=== PATIENT | female | born 1955 | race Caucasian/White ===

== ENCOUNTER 2021-03-30 14:03 | Emergency (ER) | payer MEDICARE, OTHER, SELFPAY ==
[2021-03-30 14:26] VITALS: BP 120/83; PULSE 98; RESP 20; TEMP 36.7; O2SAT 98
--- NOTE | 2021-03-30 14:46 | XRR_ITS ---
PROCEDURE INFORMATION: Exam: XR Chest Exam date and time: 03/30/2021 2:46 PM Age: 66 years old Clinical indication: Dyspnea and shortness of breath; Patient HX: Shaky, dyspnea; Additional info: SOB TECHNIQUE: Imaging protocol: XR of the chest. Views: 1 view. COMPARISON: No relevant prior studies available. FINDINGS: Lungs: Unremarkable. No consolidation. Pleural spaces: Unremarkable. No pleural effusion. No pneumothorax. Heart/Mediastinum: Unremarkable. No cardiomegaly. Bones/joints: No acute findings. XR/XR chest 1V portable [id number] IMPRESSION: No acute findings.
[2021-03-30 17:57] VITALS: BP 124/80; PULSE 73; RESP 21; O2SAT 100
[2021-03-30 18:00] VITALS: BP 129/81; PULSE 62; RESP 19; O2SAT 99
[2021-03-30 18:05] LABS: Add Urine Microscopic? NO; Charge for UA Resulting for Rev
[2021-03-30 18:07] LABS: Basophils # 0.1 10^3/uL (0.0-0.1); Basophils % 0.8 %; Eosinophils % 0.1 %; Hematocrit 43.3 % (37.0-47.0); Hemoglobin 14.5 g/dL (11.5-15.3); Lymphocytes # 2.5 10^3/uL (0.8-4.8); Lymphocytes % 27.7 %; Mean Corpuscular HGB Conc 33.5 g/dL (30.0-36.0); Mean Corpuscular Hemoglobin 29.8 pg (28.0-34.0); Mean Corpuscular Volume 89.1 fl (81-99); Mean Platelet Volume 9.9 fL (7.4-10.4); Monocytes # 0.6 10^3/uL (0.2-0.9); Monocytes % 6.7 %; Neutrophils # 5.75 10^3/uL (1.8-7.7); Neutrophils % 64.4 %; Nucleated Red Blood Cells % 0 %; Platelet Count 347 10^3/cmm (130-400); Red Blood Count 4.86 10^6/uL (4.1-5.3); Red Cell Distribution Width 12.1 % (12.1-15.1); White Blood Count 8.9 10^3/uL (4.0-10.0)
[2021-03-30 18:10] LABS: Bilirubin Urine Neg (Negative); Blood Urine Neg (Negative); Glucose Urine UA Norm (Normal); Ketones Urine Negative (Negative); Leukocyte Esterase Urine Negative (Negative); Nitrate Urine Negative (Negative); Protein Urine Neg (Negative); Sulfosalicylic Acid Urine Negative (Negative); Urine Appearance Clear (CLEAR); Urine Color Yellow (Yellow); Urobilinogen Urine Norm (Negative); pH Urine 8 (5-7)
[2021-03-30 18:22] LABS: D Dimer 0.43 ug/mIFEU (0-0.59)
[2021-03-30 18:30] VITALS: BP 129/81; PULSE 68; RESP 18; O2SAT 98
[2021-03-30 18:32] LABS: Troponin(5th) Baseline 7 ng/L (0-10)
[2021-03-30 18:39] LABS: Alanine Aminotransferase 10 U/L (0-33); Albumin Level 4.4 g/dL (3.5-5.2); Alkaline Phosphatase 88 IU/L (35-105); Anion Gap 13.5 (5-19); Aspartate Amino Transferase 13 U/L (0-32); Blood Urea Nitrogen 14 mg/dL (8-23); Calcium 9.7 mg/dL (8.5-10.5); Carbon Dioxide 26 mmol/L (22-29); Chloride 103 mmol/L (98-107); Globulin 2.1 g/dL (1.3-4.6); Glomerular Filtration Rate 123.4 mL/min (90-130); Glucose 86 mg/dL (65-115); Lipase 30 U/L (13-60); NT Pro B Type Natriuretic Pept 79 pg/mL (0-125); Osmolality Calculated 288 mOsm/kg (285-295); Potassium 3.5 mmol/L (3.5-5.1); Sodium 139 mmol/L (136-145); Total Bilirubin 0.7 mg/dL (0.15-1.2); Total Protein 6.5 g/dL (6.6-8.7)
--- NOTE | 2021-03-30 18:43 | W.ED.SOB ---
HPI - SOB/Dyspnea General: Chief Complaint: Shortness of Breath/Dyspnea Stated Complaint: SHAKY, LABORED BREATHING, WEAK Time Seen by Provider: 03/30/21 17:45 Source: patient Mode of arrival: ambulatory Limitations: no limitations History of Present Illness: HPI Narrative: 66-year-old female states she has had severe depression for years. She states that over the last few months she has been having weakness and having no energy to do daily activities. States she is had some dyspnea as well. States she been seen multiple times over the last few months and has had recent Covid test were negative. She states that she also has hypothyroidism and takes Synthroid. Denies any fever. She denies any pain anywhere. She states she has general malaise and fatigue. Associated symptoms: Deny abdominal pain, chest pain, fever(s), nausea or vomiting Review of Systems Const: Denies: fever(s), chills, body aches or change in appetite Eyes: Denies: blurry vision or eye discomfort ENMT: Denies: throat pain or dental pain Card: Denies: chest pain Resp: Reports: dyspnea GI: Denies: abdominal pain, nausea, vomiting or diarrhea : Denies: dysuria Musc: Denies: neck pain or back pain Skin/Breast: Denies: rash Neuro: Reports: weakness in extremities Psych: Denies: depression [place]/Lymph: Denies: easy bruising All/Imm: Denies: urticaria Physical Exam Const: COMMON NORMALS: no acute distress, patient oriented x3 and healthy appearing HENMT: COMMON NORMALS: normocephalic and atraumatic HEAD & SCALP: normocephalic and atraumatic Eye: COMMON NORMALS: Equal, round and reactive pupils present and EOMs intact bilaterally PUPIL: Yes Equal, round and reactive pupils present Neck/C-Spine: COMMON NORMALS: full ROM and supple Chest: COMMONS NORMALS: normal inspection of the chest and normal palpation of entire chest wall Resp: COMMON NORMALS: normal respiratory effort, No retractions, No use of accessory muscles and clear to auscultation bilaterally AUSCULTATION: clear to auscultation bilaterally Cardio: COMMON NORMALS: regular rate, regular rhythm and No murmurs present (Cardio) RATE: regular rate RHYTHM: regular rhythm GI: COMMON NORMALS: Normal to inspection, nondistended, normoactive bowel sounds present, Soft to palpation, non-tender and no masses PALPATION: Yes Soft to palpation Extremity: COMMON NORMALS: normal to inspection and full ROM Neuro: COMMON NORMALS: patient oriented x3, moves all extremities and no focal motor deficits Psych: COMMON NORMALS: mental status grossly normal, Normal thought process present and cooperative THOUGHT PROCESS: Normal thought process present Skin: COMMON NORMALS: no rashes or lesions noted and no wounds GENERAL SKIN EXAM: no rashes or lesions noted Course Vital Signs: Vital signs: Vital Signs Temperature 98.1 F 03/30/21 14:26 Pulse Rate 68 03/30/21 18:30 Respiratory Rate 18 03/30/21 18:30 Blood Pressure 129/81 03/30/21 18:30 Pulse Oximetry 98 03/30/21 18:30 MDM - SOB/Dyspnea MDM Narrative: Medical decision making narrative: Patient presents here with generalized weakness. Her legs actually due to her severe depression. She is not suicidal homicidal and feels she is stable for discharge. Patient's blood work here is all normal. Patient has no signs of acute coronary syndrome or pulmonary embolism. Patient is stable for discharge is to follow-up with PCP and return if worsening. Lab Data: Labs: Lab Results 03/30/21 03/30/21 03/30/21 17:41 17:54 17:54 WBC 8.9 10^3/uL 10^3/ uL (4.0-10.0) RBC 4.86 10^6/uL 10^6 /uL (4.1-5.3) Hgb 14.5 g/dL g/dL (11.5-15.3) Hct 43.3 % % (37.0-47.0) MCV 89.1 fl fl (81-99) MCH 29.8 pg pg (28.0-34.0) MCHC 33.5 g/dL g/dL (30.0-36.0) RDW 12.1 % % (12.1-15.1) Plt Count 347 10^3/cmm 10^3 /cmm (130-400) MPV 9.9 fL fL (7.4-10.4) Neut % (Auto) 64.4 % % Lymph % (Auto) 27.7 % % [place] % (Auto) 6.7 % % Eos % (Auto) 0.1 % % Baso % (Auto) 0.8 % % Neut # (Auto) 5.75 10^3/uL 10^3 /uL (1.8-7.7) Lymph # (Auto) 2.5 10^3/uL 10^3/ uL (0.8-4.8) [place] # (Auto) 0.6 10^3/uL 10^3/ uL (0.2-0.9) Eos # (Auto) 0.0 10^3/uL 10^3/ uL (0.0-0.8) Baso # (Auto) 0.1 10^3/uL 10^3/ uL (0.0-0.1) Nucleated RBC % (a uto) 0 % % Nucleated RBCs # 0.0 /100WBC /100W BC D-Dimer 0.43 ug/mIFEU ug/ mIFEU (0-0.59) Sodium Potassium Chloride Carbon Dioxide Anion Gap BUN Creatinine GFR Calculation Glucose Calculated Osmolal ity Calcium Total Bilirubin AST ALT Alkaline Phosphata se Troponin T Baselin e NT-Pro-B Natriuret Pep Total Protein Albumin Globulin Lipase TSH Urine Color Yellow (Yellow) Urine Appearance Clear (CLEAR) Urine pH 8 H (5-7) Ur Specific Gravit y 1.010 (1.005-1.030) Urine Protein Neg (Negative) Urine Glucose (UA) Norm (Normal) Urine Ketones Negative (Negative) Urine Blood Neg (Negative) Urine Nitrate Negative (Negative) Urine Bilirubin Neg (Negative) Prot Sulfosalicyli c Acd Negative (Negative) Urine Urobilinogen Norm mg/dL mg/dL (Negative) Ur Leukocyte Jana ase Negative (Negative) 03/30/21 03/30/21 03/30/21 17:54 17:54 17:54 WBC RBC Hgb Hct MCV MCH MCHC RDW Plt Count MPV Neut % (Auto) Lymph % (Auto) [place] % (Auto) Eos % (Auto) Baso % (Auto) Neut # (Auto) Lymph # (Auto) [place] # (Auto) Eos # (Auto) Baso # (Auto) Nucleated RBC % (a uto) Nucleated RBCs # D-Dimer Sodium 139 mmol/L mmol/L (136-145) Potassium 3.5 mmol/L mmol/L (3.5-5.1) Chloride 103 mmol/L mmol/L (98-107) Carbon Dioxide 26 mmol/L mmol/L (22-29) Anion Gap 13.5 (5-19) BUN 14 mg/dL mg/dL (8-23) Creatinine 0.5 mg/dL mg/dL (0.5-0.9) GFR Calculation 123.4 mL/min mL/m in (90-130) Glucose 86 mg/dL mg/dL (65-115) Calculated Osmolal ity 288 mOsm/kg mOsm/ kg (285-295) Calcium 9.7 mg/dL mg/dL (8.5-10.5) Total Bilirubin 0.7 mg/dL mg/dL (0.15-1.2) AST 13 U/L U/L (0-32) ALT 10 U/L U/L (0-33) Alkaline Phosphata se 88 IU/L IU/L (35-105) Troponin T Baselin e 7 ng/L ng/L (0-10) NT-Pro-B Natriuret Pep 79 pg/mL pg/mL (0-125) Total Protein 6.5 g/dL L g/dL (6.6-8.7) Albumin 4.4 g/dL g/dL (3.5-5.2) Globulin 2.1 g/dL g/dL (1.3-4.6) Lipase 30 U/L U/L (13-60) TSH 1.37 uIU/mL uIU/m L (0.27-4.20) Urine Color Urine Appearance Urine pH Ur Specific Gravit y Urine Protein Urine Glucose (UA) Urine Ketones Urine Blood Urine Nitrate Urine Bilirubin Prot Sulfosalicyli c Acd Urine Urobilinogen Ur Leukocyte Jana ase Imaging Data^: CXR: Attestation: I personally reviewed and interpreted this imaging study as follows: Radiologist's impression: [address] [place] [address] XRay Report Signed Patient: Mae Hwang Unit #: [id number] : 1955 Age/Sex: 66 / F ADM Date: 03/30/21 Loc: ER Room/Bed: Attending Dr: Ordering Provider/Ordering MD: Sampson Milan Date of Service: 03/30/21 Procedure(s): XR chest 1V portable [id number] Accession Number(s): [id number] Report Number: [id number] PROCEDURE INFORMATION: Exam: XR Chest Exam date and time: 03/30/2021 2:46 PM Age: 66 years old Clinical indication: Dyspnea and shortness of breath; Patient HX: Shaky, dyspnea; Additional info: SOB TECHNIQUE: Imaging protocol: XR of the chest. Views: 1 view. COMPARISON: No relevant prior studies available. FINDINGS: Lungs: Unremarkable. No consolidation. Pleural spaces: Unremarkable. No pleural effusion. No pneumothorax. Heart/Mediastinum: Unremarkable. No cardiomegaly. Bones/joints: No acute findings. XR/XR chest 1V portable [id number] IMPRESSION: No acute findings. Dictated By: Sukhwinder Rothman MD Signed By: Sukhwinder Rothman MD Signed Date/Time: 03/30/211628 DD/ 26 EKG Data^: EKG 1: Attestation: I personally reviewed and interpreted this EKG as follows: EKG Interpretation Date: 03/30/21 EKG interpretation time: 17:45 Interpretation: nsr hr [address] or t wave abnormalities qrs 78 qtc 419 Discharge Plan Discharge Patient Disposition: Home Clinical Impression: Weakness Condition: Stable Discharge Orders: Discharge ED (Routine); Ordered 03/30/21 Ordered By: Bryant Portillo Referrals: Tiffanie Malone SIMULATION ENGINEER-C [Primary Care Provider] - 1-3 days Discharge Diet: Advance as tolerated Discharge Activity: Resume usual activity Patient Instructions: Weakness (ED) Coding Level of Care Code ED Artificial Snow Making Machine Operator for Chg Fwd Exam Comprehensive
[2021-03-30 19:52] LABS: Thyroid Stimulating Hormone 1.37 uIU/mL (0.27-4.20)
[2021-03-30 20:11] LABS: Troponin 5 2HR 8.05 ng/L (0-10); Troponin 5 2HR Delta 1.05 ABS# (0-10)
[2021-03-30 20:19] VITALS: BP 120/75; PULSE 70; RESP 18; O2SAT 98
--- NOTE | 2021-03-30 20:47 | ECG_ITS ---
[facility] Test Date: 2021-03-30 Pat Name: Mae Hwang Department: Room: Gender: Female Steak Tenderizer Machine: : 1955 Requested By: Sampson Milan Order Number: [id number] Gena MD: Юлия Purcell M.D. Measurements Intervals [place] Rate: 62 P: -3 CA: 162 QRS: 11 QRSD: 78 T: 30 QT: 414 QTc: 422 Interpretive Statements SINUS RHYTHM Nonspecific T wave changes No previous ECG available for comparison Electronically Signed On 03-31-2021 23:46:30 CDT by Юлия Purcell M.D. [id number]
== END 2021-03-30 20:21 | disposition home or self-care (01) ==
PROVIDERS: Family Medicine; Physician Assistant; Emergency Provider Emergency Medicine; PCP Nurse Practitioner Family
DX: R53.1 Weakness (principal)
CPT/HCPCS: 36415; 71045; 80053; 81003; 83690; 83880; 84443; 84484; 85025; 85378; 87040; 87077; 87186; 87205; 93005; 99283

== ENCOUNTER 2021-04-02 13:54 | Emergency (ER) | payer MEDICARE, OTHER, SELFPAY ==
[2021-04-02 13:59] VITALS: BP 118/75; PULSE 72; RESP 20; TEMP 36.8; O2SAT 98; BMI 25.0
[2021-04-02 14:27] VITALS: BP 139/79; PULSE 69; RESP 18; O2SAT 99
[2021-04-02 14:39] VITALS: BP 139/79; PULSE 65; RESP 18; O2SAT 99
--- NOTE | 2021-04-02 14:44 | ECG_ITS ---
[facility] Test Date: 2021-04-02 Pat Name: Mae Hwang Department: Room: Gender: Female Nitrocellulose Maker: : 1955 Requested By: Edward Donovan Order Number: [id number] Reading MD: LYNDA WADDELL Measurements Intervals [place] Rate: 62 P: -2 SC: 162 QRS: 16 QRSD: 74 T: 20 QT: 429 QTc: 438 Interpretive Statements SINUS RHYTHM Compared to ECG 03/30/2021 17:45:48 T-wave abnormality no longer present Electronically Signed On 04-02-2021 15:40:29 CDT by LYNDA WADDELL [id number]
--- NOTE | 2021-04-02 14:44 | XR_ITS ---
WS: [id number] Portable AP upright chest, 04/02/2021 Clinical Data: dyspnea/cough Comparison: Portable chest, 03/30/2021 Findings: No nodules, masses or effusions are seen. The heart is normal. The pulmonary vascularity is not increased. No pneumonia or pneumothorax is seen. The aortic arch and descending thoracic aorta s hows mild tortuosity. XR/XR chest 1V portable [id number] Impression: Atherosclerosis.
--- NOTE | 2021-04-02 14:51 | W.ED.RECABL ---
HPI - Recheck/Abnormal Lab/Rx General: Chief Complaint: Recheck/Abnormal Lab/Rx Stated Complaint: RECHECK Time Seen by Provider: 04/02/21 14:07 History of Present Illness: HPI narrative: 66-year-old female who is in the emergency room on 921 of this year for complaint of fatigue weakness and generalized malaise. She had a blood culture done which came back positive today 1 of 3 bottles for MRSA. She reports that since being here previously she has not had any fever no cough or shortness of breath she has no skin infections eruptions abscesses etc. She denies any dysuria urgency or frequency no fever sweats chills or vomiting MD complaint: abnormal lab Associated symptoms: none Treatments prior to arrival: home treatments Review of Systems Const: Denies: fever(s), chills, body aches, change in appetite, fatigue or malaise ENMT: Denies: throat pain, ear or mastoid pain, nasal discharge or nasal congestion Card: Denies: chest pain, edema, dyspnea on exertion or orthopnea Resp: Denies: dyspnea, productive cough or non-productive cough GI: Denies: abdominal pain, nausea, vomiting, hematemesis, coffee ground emesis, diarrhea, constipation, bloating, hematochezia or melena : Denies: flank pain, difficulty voiding, dysuria, urinary frequency or urinary urgency Skin/Breast: Denies: rash or pruritus Physical Exam Const: COMMON NORMALS: no acute distress GENERAL APPEARANCE: cooperative and comfortable ORIENTATION/CONSCIOUSNESS: Yes awake, Yes oriented to person, Yes oriented to place and Yes oriented to time HENMT: COMMON NORMALS: normocephalic, atraumatic and hearing grossly normal bilaterally HEAD & SCALP: normocephalic and atraumatic Neck/C-Spine: COMMON NORMALS: no JVD Resp: COMMON NORMALS: normal respiratory effort, No retractions, No use of accessory muscles and clear to auscultation bilaterally AUSCULTATION: clear to auscultation bilaterally Cardio: COMMON NORMALS: no JVD, regular rate, regular rhythm and No murmurs present (Cardio) RATE: regular rate RHYTHM: regular rhythm GI: COMMON NORMALS: Soft to palpation and No hepatosplenomegaly present AUSCULTATION: Yes normoactive bowel sounds PALPATION: Yes Soft to palpation, No Tenderness to palpation present (GI), No Guarding due to palpation present (GI) and Yes No hepatosplenomegaly present Extremity: COMMON NORMALS: normal to inspection, capillary refill normal, no clubbing, cyanosis or edema, no calf tenderness and no pedal edema Neuro: SENSORIUM/ORIENTATION: Yes oriented to person, Yes oriented to place and Yes oriented to time Skin: COMMON NORMALS: no rashes or lesions noted GENERAL SKIN EXAM: no rashes or lesions noted Course Vital Signs: Vital signs: Vital Signs Temperature 98.3 F 04/02/21 13:59 Pulse Rate 65 04/02/21 14:39 Respiratory Rate 18 04/02/21 14:39 Blood Pressure 139/79 04/02/21 14:39 Pulse Oximetry 99 04/02/21 14:39 MDM - Recheck/Abnormal Lab/Rx MDM Narrative: Medical decision making narrative: Labs unremarkable reviewed labs imaging and EKG is found on the chart. Will start on doxycycline prophylactically until the final culture comes back from his repeat blood culture any worsening or change return to emergency room Lab Data: Labs: Lab Results 04/02/21 04/02/21 14:41 14:41 WBC 8.7 10^3/uL 10^3/ uL (4.0-10.0) RBC 4.69 10^6/uL 10^6 /uL (4.1-5.3) Hgb 14.0 g/dL g/dL (11.5-15.3) Hct 42.2 % % (37.0-47.0) MCV 90.0 fl fl (81-99) MCH 29.9 pg pg (28.0-34.0) MCHC 33.2 g/dL g/dL (30.0-36.0) RDW 11.9 % L % (12.1-15.1) Plt Count 332 10^3/cmm 10^3 /cmm (130-400) MPV 9.8 fL fL (7.4-10.4) Neut % (Auto) 69.7 % % Lymph % (Auto) 23.0 % % [place] % (Auto) 6.2 % % Eos % (Auto) 0.1 % % Baso % (Auto) 0.7 % % Neut # (Auto) 6.09 10^3/uL 10^3 /uL (1.8-7.7) Lymph # (Auto) 2.0 10^3/uL 10^3/ uL (0.8-4.8) [place] # (Auto) 0.5 10^3/uL 10^3/ uL (0.2-0.9) Eos # (Auto) 0.0 10^3/uL 10^3/ uL (0.0-0.8) Baso # (Auto) 0.1 10^3/uL 10^3/ uL (0.0-0.1) Nucleated RBC % (a uto) 0 % % Nucleated RBCs # 0.0 /100WBC /100W BC Sodium 139 mmol/L mmol/L (136-145) Potassium 3.5 mmol/L mmol/L (3.5-5.1) Chloride 102 mmol/L mmol/L (98-107) Carbon Dioxide 27 mmol/L mmol/L (22-29) Anion Gap 13.5 (5-19) BUN 10 mg/dL mg/dL (8-23) Creatinine 0.5 mg/dL mg/dL (0.5-0.9) GFR Calculation 123.4 mL/min mL/m in (90-130) Glucose 79 mg/dL mg/dL (65-115) Calculated Osmolal ity 286 mOsm/kg mOsm/ kg (285-295) Calcium 9.3 mg/dL mg/dL (8.5-10.5) Total Bilirubin 0.5 mg/dL mg/dL (0.15-1.2) AST 16 U/L U/L (0-32) ALT 10 U/L U/L (0-33) Alkaline Phosphata se 83 IU/L IU/L (35-105) C-Reactive Protein 1.3 mg/L mg/L (0.0-4.9) Total Protein 7.0 g/dL g/dL (6.6-8.7) Albumin 4.1 g/dL g/dL (3.5-5.2) Globulin 2.9 g/dL g/dL (1.3-4.6) Discharge Plan Discharge Patient Disposition: Home Clinical Impression: Blood bacterial culture positive Condition: Stable Prescriptions: New doxycycline hyclate 100 mg tablet 100 mg PO BID 10 Days Qty: 20 RF: 0 Discharge Orders: Discharge ED (Routine); Ordered 04/02/21 Ordered By: Edward Bustos Referrals: Tiffanie Malone, ENDLESS TRACK VEHICLE MECHANIC-C [Primary Care Provider] - Discharge Diet: Usual diet Discharge Activity: Increase activity as tolerated Patient Instructions: Opioid Safety Activity Restrictions/Additional Instructions: Start oral antibiotics and continue until culture results are back. If you develop any fever or any other symptoms return to the emergency room. Coding Level of Care Code ED Print Support Specialist for Shad Fwd Exam Comprehensive
[2021-04-02 14:55] LABS: Basophils # 0.1 10^3/uL (0.0-0.1); Basophils % 0.7 %; Eosinophils % 0.1 %; Hematocrit 42.2 % (37.0-47.0); Mean Corpuscular HGB Conc 33.2 g/dL (30.0-36.0); Mean Corpuscular Hemoglobin 29.9 pg (28.0-34.0); Mean Platelet Volume 9.8 fL (7.4-10.4); Monocytes # 0.5 10^3/uL (0.2-0.9); Monocytes % 6.2 %; Neutrophils # 6.09 10^3/uL (1.8-7.7); Neutrophils % 69.7 %; Nucleated Red Blood Cells % 0 %; Platelet Count 332 10^3/cmm (130-400); Red Blood Count 4.69 10^6/uL (4.1-5.3); Red Cell Distribution Width 11.9 % (12.1-15.1); White Blood Count 8.7 10^3/uL (4.0-10.0)
[2021-04-02 15:09] LABS: Alanine Aminotransferase 10 U/L (0-33); Albumin Level 4.1 g/dL (3.5-5.2); Alkaline Phosphatase 83 IU/L (35-105); Anion Gap 13.5 (5-19); Aspartate Amino Transferase 16 U/L (0-32); Blood Urea Nitrogen 10 mg/dL (8-23); C Reactive Protein 1.3 mg/L (0.0-4.9); Calcium 9.3 mg/dL (8.5-10.5); Carbon Dioxide 27 mmol/L (22-29); Chloride 102 mmol/L (98-107); Globulin 2.9 g/dL (1.3-4.6); Glomerular Filtration Rate 123.4 mL/min (90-130); Glucose 79 mg/dL (65-115); Osmolality Calculated 286 mOsm/kg (285-295); Potassium 3.5 mmol/L (3.5-5.1); Sodium 139 mmol/L (136-145); Total Bilirubin 0.5 mg/dL (0.15-1.2)
[2021-04-02 15:37] VITALS: BP 117/78; PULSE 72; RESP 16; O2SAT 97
== END 2021-04-02 15:37 | disposition home or self-care (01) ==
PROVIDERS: Emergency Provider Family Medicine; PCP Nurse Practitioner Family
DX: R78.81 Bacteremia (principal)
CPT/HCPCS: 71045; 80053; 85025; 86140; 87040; 93005; 99283

== ENCOUNTER 2021-05-17 11:02 | Outpatient (CLI) | payer MEDICARE, OTHER, SELFPAY ==
--- NOTE | 2021-05-17 11:12 | USCV_ITS ---
Mae Hwang Age: 66 Gender: F : 1955 Exam Date: 05/17/2021 11:37 Ordering Phys: Tiffanie Malone Technologist: IRENE [place] [facility] [place]: DYSPNEA ON EXERTION BP: 110 / 72 HR: 103 Rhythm: Sinus Technical Quality: Adequate MEASUREMENTS (Male / Female) Normal Values 2D ECHO LV Diastolic Diameter PLAX 3.9 cm 4.2 - 5.9 / 3.9 - 5.3 cm LV Systolic Diameter PLAX 2.4 cm IVS Diastolic Thickness 1.3 cm 0.6 - 1.0 / 0.6 - 0.9 cm IVS Systolic Thickness 1.8 cm LVPW Diastolic Thickness 1.6 cm 0.6 - 1.0 / 0.6 - 0.9 cm LVPW Systolic Thickness 2.1 cm LVOT Diameter 2.0 cm LV Ejection Fraction 2D Teich 69.2 % LV Ejection Fraction MOD 2C 57.1 % LV Ejection Fraction 2C AL 58.5 % LA Diameter 2.6 cm LA Width 2.6 cm LA Height 3.4 cm RA Width 2.8 cm RA Height 3.8 cm Aorta at Sinotubular Diameter 2.9 cm M-MODE Aortic Annulus Diameter 2.3 cm LA Ao Ratio MM 1.1 MV E Point Septal Separation 0.5 cm DOPPLER AV Peak Velocity 117.0 cm/s LVOT Peak Velocity 81.0 cm/s AV Area Cont Eq vti 2.2 cm squared AV Area Cont Eq pk 2.2 cm squared MV Peak Velocity 103.0 cm/s MV Area PHT 2.7 cm squared Mitral E to A Ratio 0.7 MV E' Velocity 33.0 cm/s Mitral E to MV E' Ratio 5.6 Mitral E to LV E' Lateral Ratio 5.1 Mitral E to LV E' Septal Ratio 6.3 TR Peak Velocity 227.0 cm/s TR Peak Gradient 20.6 mmHg TR Mean Velocity 206.6 cm/s TR Mean Gradient 17.9 mmHg TR Velocity Time Integral 63.7 cm TV Peak E Velocity 37.0 cm/s PV Peak Velocity 90.0 cm/s RV Acceleration Time 0.1 s RV Ejection Time 0.3 s RV AcT/ET 0.3 FINDINGS Left Ventricle Normal left ventricular size, systolic function and wall thickness, with no regional wall motion abnormalities. Left ventricular ejection fraction is estimated at 60-65 %. Grade I diastolic dysfunction (abnormal relaxation filling pattern), normal to mildly elevated filling pressures. Right Ventricle Normal right ventricular size and systolic function. Right ventricular systolic pressure 25 mmHg. Right Atrium Normal right atrial size. Right atrial pressure estimated at 3 mmHg. Left Atrium Normal left atrial size. Mitral Valve Structurally normal mitral valve. No mitral valve stenosis. Trace mitral valve regurgitation. Aortic Valve Structurally normal trileaflet aortic valve. No aortic valve stenosis. No aortic valve regurgitation. Tricuspid Valve Structurally normal tricuspid valve. No tricuspid valve stenosis. Trace tricuspid valve regurgitation. Pulmonic Valve Pulmonic valve not well visualized. No pulmonary valve stenosis. Trace pulmonary valve regurgitation. Pericardium No pericardial effusion. Aorta Normal-sized inferior vena cava. CONCLUSIONS 1. Normal left ventricular size, systolic function and wall thickness, with no regional wall motion abnormalities. Left ventricular ejection fraction is estimated at 60-65 %. Grade I diastolic dysfunction (abnormal relaxation filling pattern), normal to mildly elevated filling pressures. 2. Normal right ventricular size and systolic function. 3. Pulmonary artery pressure estimated at 25 mmHg. 4. No prior similar studies to compare. Coral Vyas MD (Electronically Signed) Final Date: 19 May 2021 11:04 S
== END 2021-05-17 11:03 | disposition home or self-care (01) ==
LOC: US 11:03
PROVIDERS: PCP Nurse Practitioner Family; Visit Provider Nurse Practitioner Family
DX: R06.09 Other forms of dyspnea (principal)
CPT/HCPCS: 93306

== ENCOUNTER → 2021-07-14 11:46 | Outpatient (BNVA) | payer MEDICARE, OTHER, SELFPAY | PROVIDERS: PCP Nurse Practitioner Family; Referring Provider Nurse Practitioner Family; Visit Provider Specialist | DX: R56.9 Unspecified convulsions (principal); F41.9 Anxiety disorder, unspecified; F33.2 Major depressive disorder, recurrent severe without psychotic features; F13.20 Sedative, hypnotic or anxiolytic dependence, uncomplicated; Z87.891 Personal history of nicotine dependence | CPT/HCPCS: 99205; G2212 ==

== ENCOUNTER → 2021-10-13 14:57 | Outpatient (BNVA) | payer MEDICARE, OTHER, SELFPAY | PROVIDERS: PCP Nurse Practitioner Family; Visit Provider Specialist | DX: F41.9 Anxiety disorder, unspecified (principal); F33.2 Major depressive disorder, recurrent severe without psychotic features; Z87.891 Personal history of nicotine dependence | CPT/HCPCS: 99214 ==

== ENCOUNTER → 2021-12-16 11:37 | Outpatient (BNVA) | payer MEDICARE, OTHER, SELFPAY | PROVIDERS: Visit Provider Specialist | DX: F41.9 Anxiety disorder, unspecified (principal); G43.909 Migraine, unspecified, not intractable, without status migrainosus; G44.209 Tension-type headache, unspecified, not intractable; F33.2 Major depressive disorder, recurrent severe without psychotic features | CPT/HCPCS: 99214 ==

== ENCOUNTER → 2024-01-09 12:30 | Outpatient (BNVA) | payer MEDICARE, OTHER, SELFPAY | PROVIDERS: PCP Nurse Practitioner Family; Visit Provider Dermatology | DX: M25.70 Osteophyte, unspecified joint (principal); L81.5 Leukoderma, not elsewhere classified; D48.5 Neoplasm of uncertain behavior of skin; L72.0 Epidermal cyst | CPT/HCPCS: 11102; 40490; 99203 ==

== ENCOUNTER → 2024-05-13 09:49 | Outpatient (BNVA) | payer MEDICARE, OTHER, SELFPAY | PROVIDERS: PCP Nurse Practitioner Family; Visit Provider Nurse Practitioner Family | DX: M25.70 Osteophyte, unspecified joint (principal); L81.5 Leukoderma, not elsewhere classified; L81.4 Other melanin hyperpigmentation; L82.1 Other seborrheic keratosis; D22.5 Melanocytic nevi of trunk; L84 Corns and callosities | CPT/HCPCS: 99213 ==

== ENCOUNTER → 2025-04-14 09:35 | Outpatient (BNVA) | payer MEDICARE, OTHER, SELFPAY | PROVIDERS: PCP Nurse Practitioner Family; Visit Provider Podiatrist Foot & Ankle Surgery | DX: M79.671 Pain in right foot (principal); M25.571 Pain in right ankle and joints of right foot; G57.91 Unspecified mononeuropathy of right lower limb | CPT/HCPCS: 73610; 73620; 99204 ==

== ENCOUNTER → 2025-05-23 12:38 | Outpatient (BNVA) | payer MEDICARE, OTHER, SELFPAY | PROVIDERS: PCP Nurse Practitioner Family; Visit Provider Nurse Practitioner Family | DX: L23.9 Allergic contact dermatitis, unspecified cause (principal); M25.70 Osteophyte, unspecified joint; L57.8 Other skin changes due to chronic exposure to nonionizing radiation; L81.4 Other melanin hyperpigmentation; L82.1 Other seborrheic keratosis; D22.5 Melanocytic nevi of trunk; L57.0 Actinic keratosis | CPT/HCPCS: 17000; 99213 ==

== ENCOUNTER → 2025-06-17 12:58 | Outpatient (BNVA) | payer MEDICARE, OTHER, SELFPAY | PROVIDERS: PCP Nurse Practitioner Family; Visit Provider Podiatrist Foot & Ankle Surgery | DX: M25.571 Pain in right ankle and joints of right foot (principal); G57.91 Unspecified mononeuropathy of right lower limb | CPT/HCPCS: 99213 ==

== ENCOUNTER → 2025-07-08 11:24 | Outpatient (BNVA) | payer MEDICARE, OTHER, SELFPAY | PROVIDERS: PCP Nurse Practitioner Family; Visit Provider Nurse Practitioner Family | DX: L23.9 Allergic contact dermatitis, unspecified cause (principal) | CPT/HCPCS: 99213 ==